=== PATIENT | male | born 1980 | race Caucasian/White ===

== ENCOUNTER 2017-06-26 10:57 | Emergency (ER) | payer OTHER ==
[~2017-06-26] VITALS: Ht 167.6 cm; Wt 99.8 kg
[~2017-06-26 10:57] MED LIST: FLEXERIL10 MG PO; NAPROSYN 500MG500 MG PO
--- OUTSIDE RECORDS SUMMARY | 2017-06-26 11:05 | External Medical Summary Rpt | CCD ---
Author Author , TYSON Organization TYSON Address Unknown Phone [email or web address] Care Team Providers Care Needle Setter Name Role Phone KAELYN LOPEZ, KAELYN Unavailable Unavailable JESSICA KAELYN JESSICA, KAELYN Unavailable Unavailable JESSICA BEINEKE YUSUF, BEINEKE Unavailable Unavailable YUSUF [facility] Unavailable [facility] APOLINAR AMY, APOLINAR Unavailable Unavailable AMY APOLINAR AMY, APOLINAR Unavailable Unavailable AMY [facility] Un[facility] Unavailable [facility], [facility] Unavailable Unavailable [facility], [facility] RABIEE ABD, RABIEE Unavailable Unavailable ABD SCIFRES ANG, SCIFRES Unavailable Unavailable ANG SCIFRES ANG, SCIFRES Unavailable Unavailable ANG [facility] Unavailable Unavailable [facility], [facility], [facility] Unavailable Unavailable BRANT JUAN, RBANT Unavailable Unavailable JAUN Purpose Continuity of Care Document - 03-15-2014 through 2016 Problems Code Diagnosis DOS Provider Status 1104 DERMATOPHYT 01-11-2015 HELENABALTAZAR JESSICA OSIS OF FOOT 6829 CELLULITIS 01-11-2015 KAELYN LOPEZ AND ABSCESS OF UNSPECIFIED SITE 4610 ACUTE 08-26-2014 [facility] SINUSITIS 8408 SPRAIN&STRA 06-06-2014 [facility] IN OTH SPEC ORTHOPAEDIC SITES S PLC SHOULDER&UP PER ARM 21268 PAIN IN 06-05-2014 [place], MEDICAL SHOULDER IMAGING ASS REGION 8400 ACROMIOCLAV 06-05-2014 [facility] SPRAIN AND PHYS STRAIN 8409 SPRAIN&STRA 06-05-2014 [facility] IN UNSPEC N EMERGENCY SITE PHYS SHOULDER&UP PER ARM E9271 OVEREXERTIO 06-05-2014 [facility] N FROM N EMERGENCY PROLONGED PHYS STATIC POSITION 4660 ACUTE 04-29-2014 AP[facility] AMY BRONCHITIS 3671 MYOPIA 03-15-2014 SCIFRES ANG S43.409A UNSP SPRAIN OF UNSPECIFIED SHOULDER JOINT, INIT ENCNTR S46.919A STRAIN UNSP MUSC/FASC/T END AT SHLDR/UP ARM, UNSP ARM, INIT T16.2XXA FOREIGN BODY IN LEFT EAR, INITIAL ENCOUNTER Procedures Procedure DOS Code Location Performer Comment IAADIADOO 45348 [facility] 4 N URGENT ABD STREPTOCO CARE CCUS GROUP A RADEX 70894 [place] SHOULDER 4 MEDICAL YUSUF COMPLETE IMAGING MINIMUM 2 ASS VIEWS OPHTH 59359 SCIFRES SCIFRES MEDICAL 4 ANG ANG XM&EVAL COMPRE NEW PT 1/> VST Encounters Encounter Start End Date Code Location Performer Type Date OFFICE 89871 KAELYN ART OUTPATIEN 5 5 JESSICA JESSICA T VISIT 15 MINUTES OFFICE 80659 [facility] OUTPATIEN 4 4 N URGENT ABD T NEW 30 CARE MINUTES OFFICE 38622 [facility] OUTPATIEN 4 4 [place] JUAN T NEW 30 ORTHOPAED MINUTES ICS PLC EMERGENCY 77518 [facility] [address] [facility] EMERGENCY T VISIT PHYS MODERATE SEVERITY OFFICE 13670 [facility] APOLINAR OUTPATIEN 4 4 PHYSICIAN AMY T VISIT S GROUP 15 MINUTES OFFICE 74127 [facility] JIANG OUTPATIEN 4 4 AMY AMY T VISIT 15 MINUTES OFFICE 73322 [facility] JIANG OUTPATIEN 4 4 AMY AMY T NEW 20 MINUTES
--- OUTSIDE RECORDS SUMMARY | 2017-06-26 11:05 | External Medical Summary Rpt | CCD ---
Author Author , TYSON MEHTA Address Unknown Phone [email or web address] Care Team Providers Care Bag Checker Name Role Phone KAELYN JESSICA, ARNOLD Unavailable Unavailable JESSICA ARNOLD JESSICA, ARNOLD Unavailable Unavailable JESSICA BEINEKE YUSUF, BEINEKE Unavailable Unavailable YUSUF [facility] Unavailable [facility]available [facility], [facility] APOLINAR AMY, APOLINAR Unavailable Unavailable AMY APOLINAR AMY, APOLINAR Unavailable Unavailable AMY [facility] Unavailable Unavailable [facility], [facility] Unavailable Unavailable [facility], [facility] RABIEE ABD, RABIEE Unavailable Unavailable ABD SCIFRES ANG, SCIFRES Unavailable Unavailable ANG SCIFRES ANG, SCIFRES Unavailable Unavailable [facility]G [facility], [facility] WE[facility] SHA, ROSA SHA Unavailable Unavailable BRANT JUAN, BRANT Unavailable Unavailable JUAN Purpose Continuity of Care Document - 03-15-2014 through 2016 Problems Code Diagnosis DOS Provider Status 1104 DERMATOPHYT 01-11-2015 KAELYN LOPEZ OSIS OF FOOT 6829 CELLULITIS 01-11-2015 KAELYN LOPEZ AND ABSCESS OF UNSPECIFIED SITE 4610 ACUTE 08-26-2014 [facility] SINUSITIS 8408 SPRAIN&STRA 06-06-2014 [facility] IN OTH SPEC ORTHOPAEDIC SITES S PLC SHOULDER&UP PER ARM 08929 PAIN IN 06-05-2014 [place] [facility], MEDICAL SHOULDER IMAGING ASS REGION 8400 ACROMIOCLAV 06-05-2014 [facility] EMERGENCY SPRAIN AND PHYS STRAIN 8409 SPRAIN&STRA 06-05-2014 [facility] IN UNSPEC N EMERGENCY SITE PHYS SHOULDER&UP PER ARM E9271 OVEREXERTIO 06-05-2014 [facility] N FROM N EMERGENCY PROLONGED PHYS STATIC POSITION 4660 ACUTE 04-29-2014 AP[facility] AMY BRONCHITIS 3671 MYOPIA 03-15-2014 SCIFRES ANG Procedures Procedure DOS Code Location Performer Comment IAADIADOO 82965 [facility] RABLENNIEE 4 N URGENT ABD STREPTOCO CARE CCUS GROUP A RADEX 30785 [place] SHOULDER 4 MEDICAL YUSUF COMPLETE IMAGING MINIMUM 2 ASS VIEWS OPH 93164 [facility] MED[facility] 4 ANG ANG XM&EVAL COMPRE NEW PT 1/> VST Encounters Encounter Start End Date Code Location Performer Type Date OFFICE 13194 KAELYN ART OUTPATIEN 5 5 JESSICA JESSICA T VISIT 15 MINUTES OFFICE 55123 [facility] EDGAR OUTPATIEN 4 4 N URGENT ABD T NEW 30 CARE MINUTES OFFICE 30981 [facility] OUTPATIEN 4 4 [place] JUAN T NEW 30 ORTHOPAED MINUTES [facility]CS PLC EMERGENCY 66606 [facility] 4 4 [place] EMERGENCY T VISIT PHYS MODERATE SEVERITY OFFICE 37892 [facility] APOLINAR JHAVERIEN 4 4 PHYSICIAN AMY T VISIT S GROUP 15 MINUTES OFFICE 99626 [facility] FLYNNPATIEN 4 4 AMY AMY T VISIT 15 MINUTES OFFICE 04507 AP[facility] MIRAMONTES 4 4 AMY AMY T NEW 20 MINUTES
--- OUTSIDE RECORDS SUMMARY | 2017-06-26 11:05 | External Medical Summary Rpt | CCD ---
Author Author , TYSON Organization TYSON Address Unknown Phone [email or web address] Care Team Providers Care Hvac R Instructor Name Role Phone KAELYN LOPEZ, KAELYN Unavailable Unavailable JESSICA KAELYN JESSICA, KAELYN Unavailable Unavailable JESSICA BEINEKE YUSUF, BEINEKE Unavailable Unavailable YUSUF [facility] Unavailable [facility]available [facility], [facility] APOLINAR AMY, APOLINAR Unavailable Unavailable AMY APOLINAR AMY, APOLINAR Unavailable Unavailable AMY [facility] Unavailable Unavailable C[facility], [facility] Unavailable Unavailable [facility], [facility] RABIEE ABD, RABIEE Unavailable Unavailable ABD SCIFRES ANG, SCIFRES Unavailable Unavailable ANG SCIFRES ANG, SCIFRES Unavailable Unavailable [facility], [facility] SHA, [facility] SHA Unavailable Unavailable BRANT JUAN, BRANT Unavailable Unavailable JUAN Purpose Continuity of Care Document - 03-15-2014 through 2016 Problems Code Diagnosis DOS Provider Status 1104 DERMATOPHYT 01-11-2015 HELENABALTAZAR JESSICA OSIS OF FOOT 6829 CELLULITIS 01-11-2015 KAELYN LOPEZ AND ABSCESS OF UNSPECIFIED SITE 4610 ACUTE 08-26-2014 [facility] SINUSITIS 8408 SPRAIN&STRA 06-06-2014 [facility] IN OTH SPEC ORTHOPAEDIC SITES S PLC SHOULDER&UP PER ARM 10970 PAIN IN 06-05-2014 [place] [facility], MEDICAL SHOULDER [...] Procedure DOS Code Location Performer Comment IAADIADOO 70457 [facility] 4 N URGENT ABD STREPTOCO CARE CCUS GROUP A RADEX 28086 [place] SHOULDER 4 MEDICAL YUSUF COMPLETE IMAGING MINIMUM 2 ASS VIEWS OPHTH 02740 SCIFRES SCIFRES MEDICAL 4 ANG ANG XM&EVAL COMPRE NEW PT 1/> VST Encounters Encounter Start End Date Code Location Performer Type Date OFFICE 65309 KAELYN ART OUTPATIEN 5 5 JESSIAC JESSICA T VISIT 15 MINUTES OFFICE 68683 [facility] OUTPATIEN 4 4 N URGENT ABD T NEW 30 CARE MINUTES OFFICE 41228 [facility] OUTPATIEN 4 4 [place] JUAN T NEW 30 ORTHOPAED MINUTES [facility]CS PLC EMERGENCY 86262 [facility] 4 4 [place] [facility] EMERGENCY T VISIT PHYS MODERATE SEVERITY OFFICE 22025 [facility] APOLINAR OUTPATIEN 4 4 PHYSICIAN AMY T VISIT S GROUP 15 MINUTES OFFICE 32897 [facility] JIANG OUTPATIEN 4 4 AMY AMY T VISIT 15 MINUTES OFFICE 67445 AP[facility] JIANG OUTPATIEN 4 4 AMY AMY T NEW 20 MINUTES
--- OUTSIDE RECORDS SUMMARY | 2017-06-26 11:05 | External Medical Summary Rpt | CCD ---
Author Author , TYSON MEHTA Address Unknown Phone [email or web address] Care Team Providers Care Prenatal Teacher Name Role Phone KAELYN JESSICA, ARNOLD Unavailable Unavailable JESSICA ARNOLD JESSICA, ARNOLD Unavailable Unavailable JESSICA BEINEKE YUSUF, BEINEKE Unavailable Unavailable YUSUF [facility] Unavailable Unavailable [facility], [facility] APOLINAR AMY, APOLINAR Unavailable Unavailable AMY APOLINAR AMY, APOLINAR Unavailable Unavailable AMY [facility] Unavailable Unavailable C[facility], [facility] Unavailable Unavailable [facility], [facility] RABIEE ABD, RABIEE Unavailable Unavailable ABD SCIFRES ANG, SCIFRES Unavailable Unavailable ANG SCIFRES ANG, SCIFRES Unavailable Unavailable [facility]G [facility]available [facility]available [facility], [facility] WELL[facility] SHA, ROSA SHA Unavailable Unavailable BRANT JUAN, BRANT Unavailable Unavailable JUAN Purpose Continuity of Care Document - 03-15-2014 through 2016 Problems Code Diagnosis DOS Provider Status 1104 DERMATOPHYT 01-11-2015 KAELYN LOPEZ OSIS OF FOOT 6829 CELLULITIS 01-11-2015 KAELYN LOPEZ AND ABSCESS OF UNSPECIFIED SITE 4610 ACUTE 08-26-2014 [facility] SINUSITIS 8408 SPRAIN&STRA 06-06-2014 [facility] IN OTH SPEC ORTHOPAEDIC SITES S PLC SHOULDER&UP PER ARM 69005 PAIN IN 06-05-2014 [place] JOINT, MEDICAL SHOULDER IMAGING ASS REGION 8400 ACROMIOCLAV 06-05-2014 [facility] N EMERGENCY SPRAIN AND PHYS STRAIN 8409 SPRAIN&STRA 06-05-2014 [facility] IN UNSPEC N EMERGENCY SITE PHYS SHOULDER&UP PER ARM E9271 OVEREXERTIO 06-05-2014 [facility] N FROM N EMERGENCY PROLONGED PHYS STATIC POSITION 4660 ACUTE 04-29-2014 APOLINAR AMY BRONCHITIS 3671 MYOPIA 03-15-2014 SCIFRES ANG Procedures Procedure DOS Code Location Performer Comment IAADIADOO 32692 [facility] RABLENNIEE 4 N URGENT ABD STREPTOCO CARE CCUS GROUP A RADEX 51711 [place] SHOULD[facility] 4 MEDICAL YUSUF COMPLETE IMAGING MINIMUM 2 ASS VIEWS OPH 34766 [facility] MED[facility] 4 ANG ANG XM&EVAL COMPRE NEW PT 1/> VST Encounters Encounter Start End Date Code Location Performer Type Date OFFICE 25024 KAELYN ART OUTPATIEN 5 5 JESSICA JESSICA T VISIT 15 MINUTES OFFICE 40686 [facility] EDGAR OUTPATIEN 4 4 N URGENT ABD T NEW 30 CARE MINUTES OFFICE 50920 [facility] OUTPATIEN 4 4 [place] JUAN T NEW 30 ORTHOPAED MINUTES ICS PLC EMERGENCY 83390 [facility] 4 4 [place] [facility] EMERGENCY T VISIT PHYS MODERATE SEVERITY OFFICE 41585 [facility] APOLINAR JHAVERIEN 4 4 PHYSICIAN AMY T VISIT S GROUP 15 MINUTES OFFICE 45450 AP[facility] FLYNNPATIEN 4 4 AMY AMY T VISIT 15 MINUTES OFFICE 67984 APOLINAR MIRAMONTES 4 4 AMY AMY T NEW 20 MINUTES
--- OUTSIDE RECORDS SUMMARY | 2017-06-26 11:06 | External Medical Summary Rpt ---
Author Author TYSON Camarena, [employer] Organization [employer] Address Unknown Phone Unavailable
--- OUTSIDE RECORDS SUMMARY | 2017-06-26 11:06 | External Medical Summary Rpt | CCD ---
Demographics Preferred Language Jordanian Marital Status Unknown Taoist Affiliation Unknown Race Unknown Ethnic Group Unknown Author Author , TYSON MEHTA Address Unknown Phone Immunization Unable to retrieve immunization data due to connection failure with Immunization Registry. Please try again later.
--- OUTSIDE RECORDS SUMMARY | 2017-06-26 11:06 | External Medical Summary Rpt | CCD ---
Demographics Preferred Language [place] Guinean Marital Status Unknown Amish Affiliation Unknown Race Unknown Ethnic Group Unknown Author Author , TYSON MEHTA Address Unknown Phone Immunization Unable to retrieve immunization data due to connection failure with Immunization Registry. Please try again later.
--- NOTE | 2017-06-26 11:14 | Urgent Treatment Center Report ---
History of Present Issue Date/Time Seen by Provider 06/26/17 1116 Visit Reason Pt arrived:Walked Presenting Problem:PT C/O OF LEFT WRIST PAIN FROM FINGER TIPS RADIATING UP TO ELBOW FOR 2 MONTHS. Location if Accident: Onset of symptoms date/time:/ or onset unknown for:MEDICAL HX UNKNOWN Have you (or family members/close friends) recently traveled outside the [place]? N If Yes, where/when: Have you had exposure to infectious disease within the past month? TB? Other? Specify: Source patient Exam Limitations no limitations Comment 36-year-old male presents today with multiple complaints. First complaint is LEFT wrist pain that radiates pain to his elbow no injury noted in single and on for a couple of months. 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 Third complaint is a discoloration raised area on bottom lip that's been there for 8 months and he has been treated 3 or 4 times at the [facility]'s area. Patient states he does not have a primary care doctor and has not seen a doctor in years. ALLERGIES Coded Allergies: No Known Allergies (02/25/17) History Medical History General CAD? No Angina: No HI: No Hypertension? No Hyperlipidemia? No CHF? No DVT? No PE? No COPD? No Asthma? No Anemia? No GERD? No Gastric ulcers? No GI Bleed? No Hernia? No Thyroid Problems? No Hypothyroidism? No CVA? No Seizures? No Diabetes? No Renal Insuffiency? No UTI? No Stones? No BPH? No GB Disease: No Nephritic Syndrome? No Asplenia? No Hepatitis? No Sickle Cell Disease? No Arthritis? No Migraines? No Cataracts? No Glaucoma? No MRSA? No HIV? No TB? No Anxiety? No Depression? No Cancer? No More? No Immunization HX DT/Tetanus Unknown Surgical Hx Previous Surgery?N Social History Smoking Hx Smoker: Former Smoker Tobacco: No Packs/day < 1 Pack Alcohol Alcohol: No Review of Systems All Other Systems Reviewed and Negative ENT see HPI. Musculoskeletal see HPI, joint pain Skin see HPI, lesions Physical Exam Vital Signs Vital Signs Date Time Temp Pulse Resp B/P Pulse O2 O2 Flow FiO2 Ox Delivery Rate 06/26 1108 97.8 70 18 144/92 94 - WBC >12,000 or <4,000 or 10% bands? 2 or more SIRS Criteria Met? B/P:144/92 MAP:109 Creatinine >2.0? UA output<0.5ml/kg/hr for 2 hrs? Platelet count >100,000? Lactate >2.0mmol/1? INR >1.2 or PTT > than 60 sec? Evidence of Organ Dysfunction? Provider documented clinical suspician of infection? Sepsis Criteria Count: 0 Sepsis Risk: General Appearance normal appearance, no apparent distress Eye Exam - bilateral eye normal exam, bilateral eye PERRL, bilateral eye EOMI Ear, Nose, Throat hearing grossly normal, normal ENT inspection, normal pharynx, small raised white area on midline lower lip Neck normal inspection, full range of motion Respiratory Status Yes: trachea midline, chest symmetrical, non tender chest. No: respiratory distress. Lung Sounds bilateral: normal breath sounds, lungs clear. Cardiovascular normal exam, regular rate/rhythm, no peripheral edema Peripheral Pulses Pulses normal Yes Neurologic alert, normal exam, oriented x 3 Skin intact, black linear lines noted to fingernails Medical Decision Making LABS/Meds/Orders Pt receiving controlled substance in ED? No Results/Orders Orders Procedure Date/time Status WRIST-3 VIEWS-LT 06/26 1116 Active HEAVY METAL SCREEN 06/26 1115 Active ARSENIC BLOOD 06/26 1115 Active XRAY/CT/US XRAY/CT/US XRAY wrist XR interpretation by reviewed by me Xray Results normal/NAD, no fracture seen Departure Departure Time of Disposition 1201 Disposition DC Home or Self Care(routine) Clinical Impression Primary Impression: Wrist pain, acute Qualifiers: Laterality: left Qualified Code: M25.532 - Pain in left wrist Secondary Impressions: Discoloration of nail, Lip lesion Condition STABLE Referrals Blanco WHTIING,Hitesh Lynne: 2 Days-Call Office Venkatesh Blanco MD: 2 Days-Call Office Patient Instructions Wrist Sprain Additional Instructions Heat and ice as needed for comfort Splint in place for comfort Follow-up with Dr. Luis/blanco List given a primary care doctors except in the patient's If symptoms worsen or do not improve return or be seen in the ER Discharge Counseling Counseled pt/family regarding diagnosis, test results, medications/RX, home care, follow up needs Comments List given to patient on excepting primary care offices at 1204
[2017-06-26 12:14] VITALS: BP 144/92
--- NOTE | 2017-06-26 12:45 | RADIOLOGY REPORT PS360 ---
WRIST-3 VIEWS-LT HISTORY: pain no injury ORDERING PHYSICIAN: Barb Elena PATIENT AGE: 36 years COMPARISON: None FINDINGS: No fracture or dislocation. No lytic or blastic change. There is normal mineralization. The joint spaces are well-preserved. No significant degenerative/arthritic changes. No erosive changes evident. IMPRESSION: Negative, no acute finding
[2017-07-01 03:38] LABS: Arsenic, Blood 8 ug/L (2-23); Mercury, Blood None Detected ug/L (0.0-14.9)
== END 2017-06-26 12:14 | disposition home or self-care (01) ==
LOC: UTC 10:57
PROVIDERS: Nurse Practitioner Family
DX: M25.532 Pain in left wrist (principal); K13.0 Diseases of lips; L60.8 Other nail disorders

== ENCOUNTER → 2017-07-05 | Outpatient (CLI) | payer OTHER ==
[2017-07-05 14:08] LABS: HEMOGLOBIN 14.9 g/dL (14.1-18.0); LYMPH # 1.8 K/mm3 (0.7-4.5); LYMPH % 29.3 % (10-50)
--- NOTE | 2017-07-05 15:48 | RADIOLOGY REPORT PS360 ---
EXAM: CERVICAL SPINE 4 OR 5 VIEWS HISTORY: NECK PAIN ORDERING PHYSICIAN: PHILIP ROUSSEAU PATIENT AGE: 36 years COMPARISON: None FINDINGS: Normal alignment. No fracture or dislocation. No lytic or blastic change. No significant degenerative change. The disc spaces are preserved. IMPRESSION: Negative cervical spine
[2017-07-05 16:05] LABS: BUN 15 mg/dL (7-18)
[2017-07-05 16:25] LABS: GFR (ESTIMATED) 84 ML/MIN (>60)
== END ==
LOC: LAB 11:13 → RAD 11:13
PROVIDERS: Nurse Practitioner Family
DX: M54.2 Cervicalgia (principal); R53.83 Other fatigue; E55.9 Vitamin D deficiency, unspecified

== ENCOUNTER → 2017-07-28 | Outpatient (CLI) | payer OTHER ==
[2017-07-29 07:40] LABS: HBsAg Screen Negative (Negative); Hep A Ab, IgM Negative (Negative); Hep B Core Ab, IgM Negative (Negative); Hep C Virus Ab <0.1 (0.0-0.9)
== END ==
LOC: LAB 14:38
PROVIDERS: Nurse Practitioner Family
DX: R79.89 Other specified abnormal findings of blood chemistry (principal)

== ENCOUNTER → 2017-08-04 | Outpatient (CLI) | payer OTHER ==
[2017-08-04 11:46] LABS: HEMOGLOBIN 15.4 g/dL (14.1-18.0); LYMPH # 2.4 K/mm3 (0.7-4.5); LYMPH % 29.9 % (10-50)
--- NOTE | 2017-08-04 11:59 | RADIOLOGY REPORT PS360 ---
CHEST(2 VIEWS-NOT PORTABLE) HISTORY: SMOKER ORDERING PHYSICIAN: SALO FRITZ MD PATIENT AGE: 36 years COMPARISON: None available FINDINGS: The cardiomediastinal silhouette and pulmonary vascularity are within normal limits. The lungs are clear without infiltrates, suspicious nodules, or pleural effusions. There is mild coarsening of the bronchovascular markings with representing smoking-related lung disease. There is mild hyperinflation well. No acute bony abnormalities. IMPRESSION: 1. No acute finding. 2. Hyperinflation with coarsening of the bronchovascular markings which may be seen with smoking related lung disease/chronic bronchitis
[2017-08-04 12:35] LABS: BUN 10 mg/dL (7-18)
[2017-08-04 12:41] LABS: GFR (ESTIMATED) 95 ML/MIN (>60)
== END ==
LOC: LAB 11:18
PROVIDERS: Orthopaedic Surgery
DX: G56.02 Carpal tunnel syndrome, left upper limb (principal); Z01.818 Encounter for other preprocedural examination

== ENCOUNTER 2017-08-12 06:23 | Day surgery (SDC) | payer OTHER ==
[~2017-08-12] VITALS: Ht 170.2 cm; Wt 105.7 kg
[2017-08-12 09:32] VITALS: BP 106/61
--- NOTE | 2017-08-12 12:46 | Operative Note ---
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 The eyes were protected with Steri-Strips. The perilesional area on the midpoint of the red lip was infiltrated with a total of 2 mL of 2 percent lidocaine containing epinephrine. The markup was incised and the lesion was excised and submitted. A tissue rearrangement Z-plasty repair was done with interrupted 5-0 nylon sutures. Bleeding was stopped with bipolar cautery and blood loss was less than 10 mL. Bacitracin ointment was applied and the patient was sent to recovery in good general condition EBL (ml): 1 Specimens obtained: Same as above at 1241
== END 2017-08-12 09:00 | disposition home or self-care (01) ==
LOC: SDC 06:23
PROVIDERS: Otolaryngology
PROC: 0HB1XZX Excision of Face Skin, External Approach, Diagnostic (ICD-10-PCS; principal; 2017-08-12 08:00)
DX: D49.2 Neoplasm of unspecified behavior of bone, soft tissue, and skin (principal)

== ENCOUNTER 2017-08-18 06:02 | Day surgery (SDC) | payer OTHER ==
--- NOTE | 2017-08-18 08:42 | Operative Note ---
Procedure/Operative Record Date of Procedure: 08/18/17 Referring physician: Dr. Jimenez Pre-op diagnosis: Carpal tunnel syndrome, left wrist Post-op diagnosis: Carpal tunnel syndrome, left wrist Procedure performed: Open carpal tunnel release, left wrist Surgeon: Joseph Fritz MD Wardrobe Attendant(s): Aiyana Bey Anesthesia: Biers block with IV sedation Indications: Patient is a 36-year-old male with LEFT/RIGHT carpal tunnel syndrome with gradually worsening symptoms for A long time. EMG/NCV results confirmed carpal tunnel syndrome on the LEFT side. Patient failed to respond adequately to conservative management. Therefore the carpal tunnel release surgery was necessary to relieve symptoms, preserve the remaining fibers of the median nerve , improve function and decrease the pain, paresthesias and weakness and to prevent permanent nerve damage. Findings: The intraoperative findings showed the median nerve to be very tightly compressed and hyperemic. The flexor retinaculum was noted to be thick and tight. There was mild synovitis in the carpal tunnel. There was no evidence of any space-occupying lesions within the carpal tunnel. Description of procedure: On the day of the surgery the patient and his were met in the preoperative area. Patient was positively identified and the operative site was marked and initialed by me. A physical examination was performed and the chart was updated. I again discussed the procedure, risks and benefits and alternatives with the patient. The complications discussed include but are not limited to- bleeding, injury to nerves, blood vessels and tendons, infection, wound dehiscence [wound coming apart], incomplete relief/continued pain, persistent numbness, palmar hypersensitivity, pillar pain, DVT/PE, complex regional pain syndrome(CRPS), worsening of nerve damage, failure of the condition to improve, incomplete return of function, bowstringing of tendons, weakness of electrician marine strength, recurrence, failure of the surgery to accomplish the desired goals, decreased use of the hand, loss of use of the arm, loss of the hand or arm, loss of life. Likely need for further surgery in the future has been discussed. I've indicated to the patient where the proposed incision would be made and also discussed the possibility of extending the incision if needed to accomplish an effective release. We have discussed how the goal of surgery is to protect the fibers which have remained healthy and hopefully reverse the symptoms of the fibers which are compromised but still recoverable. We have explained that, fibers that are permanently damaged will not recover. We have also discussed the anesthetic options which include local, regional and general. Patient expressed a preference for a regional Melvin's block. Patient asked appropriate questions and all have been answered by me. Patient wished to proceed with the surgery. Consent form was reviewed and signed. The patient was brought to the operating room and placed supine on the operating table. The LEFT upper extremity was placed over a side table. All the bony prominences were well-padded. The patient had a Melvin's block anesthesia and IV sedation administered by the data analytics analyst. Please see nursing records for the total tourniquet time. The LEFT upper extremity was prepped and draped in the usual sterile fashion. A preprocedure timeout was performed as per hospital policy. The skin incision was marked using the Acosta's landmarks, just ulnar to the thenar crease. Acosta's landmarks were utilized and a skin incision was made parallel and just ulnar to the thenar crease with a 15 blade. Blunt tissue dissection was carried through the subcutaneous tissue down to the palmar fascia. The palmar fascia was incised with the knife to reveal the transverse carpal ligament. The transverse carpal ligament was adequately exposed and then incised with the knife just enough to expose the median nerve. We then protected the median nerve with a freer elevator and extended the incision on the ulnar aspect of the nerve using the knife. We then completed the division of the transverse carpal ligament proximally using a pair of tenotomy scissors. The transverse carpal ligament was contiguous with the antebrachial fascia- the skin was lifted up with a retractor, and the antebrachial fascia visualized and incised. A complete release proximally was confirmed by easily obtaining side to side movement of the proximal carpal tunnel segments. Attention was then directed distally. Again, we incised the distal aspect of the transverse carpal ligament using the tenotomy scissors. Fat demarcating the end of the carpal tunnel was identified and we ensured that the motor branch was not endangered by any anatomic variation. We also confirmed that we had free side to side movement of the entire transverse carpal tunnel ligament segments. Inspection of the carpal tunnel contents showed hyperemic changes in the nerve and a mild degree of synovitis of the flexor tendons. There were no space-occupying lesions within the carpal tunnel. The tourniquet was then deflated and hemostasis was obtained with bipolar diathermy. We then irrigated the wound with normal saline and the skin was closed with a running 4-0 nylon suture. The skin and soft tissue around the incision were then infiltrated with 10 mL of 0.5 percent Marcaine for postoperative pain relief. Sterile dressings and a compression bandage was applied. The tourniquet cuff was removed from the arm. The patient was then transferred onto the [facility] and transported to the postoperative recovery area in stable condition. The swab, instrument and needle counts were correct according to the scrub team at the end of the procedure. Patient tolerated the procedure well and there were no immediate complications. Patient was discharged home with appropriate written instructions after a period of observation in the postoperative area. Patient will be followed up in my office in 2-3 days time for change of dressings and then in 10-14 days time for removal of sutures. EBL (ml): 2 Implant: None Complications: None Specimens: None at [id number]
[2017-08-18 09:18] VITALS: BP 149/98
== END 2017-08-18 08:54 | disposition home or self-care (01) ==
LOC: SDC 06:02
PROVIDERS: Orthopaedic Surgery
PROC: 01N50ZZ Release Median Nerve, Open Approach (ICD-10-PCS; principal; 2017-08-18 07:30)
DX: G56.02 Carpal tunnel syndrome, left upper limb (principal)